=== PATIENT | male | born 1930 | race Caucasian/White ===

== ENCOUNTER 2016-06-29 20:35 | Inpatient (IN) | payer MEDICARE, OTHER ==
[~2016-06-29] VITALS: Ht 175.3 cm; Wt 65.0 kg
[2016-06-29] MEDS ORDERED: CEFTRIAXONE 1 GM VIAL ONE (22:58)
[2016-06-29] MEDS ORDERED: SODIUM CHLORIDE 0.9% 100 ML IV ONE (22:58)
[2016-06-30] VITALS (29 sets, daily range): BP systolic 99–163; RESP 0–20; TEMP 97.7–98.5; Ht 175.3 cm; Wt 65.0 kg
[2016-06-30] MEDS ORDERED: MAG HYDROX 30 ML UDC PO PRN (01:55)
[2016-06-30] MEDS ORDERED: BISACODYL 10 MG SUPP RECTAL PRN (01:55)
[2016-06-30] MEDS ORDERED: SALINE FLUSH 10 ML FLUSH PRN (01:55)
[2016-06-30] MEDS ORDERED: ONDANSETRON 4 MG VIAL IV PRN (01:55)
[2016-06-30] MEDS ORDERED: SODIUM CHLORIDE 0.9% 1,000 ML IV SCH (01:55)
[2016-06-30] MEDS ORDERED: BISACODYL EC 5 MG TAB PO PRN (01:55)
[2016-06-30] MEDS ORDERED: ALU/MAG/SIM 30 ML UDC PO PRN (01:55)
[2016-06-30] MEDS: SODIUM CHLORIDE 0.9% FLUSH BAG 500 ML IV SCH (05:40)
[2016-06-30] MEDS ORDERED: CEFTRIAXONE 1 GM in SODIUM CHLORIDE 0.9% 50 ML IV SCH (09:00)
[2016-06-30] MEDS ORDERED: POLYETHYLENE GLYCOL 17 GM PACKET PO PRN (09:05)
[2016-06-30] MEDS: SALINE FLUSH 10 ML FLUSH SCH ×2 (09:07→21:47)
[2016-06-30] MEDS: FLUTICASONE 0.05% NA BTL NARE EACH SCH ×2 (11:12→21:48)
[2016-06-30] MEDS: DABIGATRAN 150 MG CAP PO SCH ×2 (11:12→21:47)
[2016-06-30] MEDS: Furosemide 20 MG TAB PO SCH (11:12)
[2016-06-30] MEDS: MONTELUKAST 10 MG TAB PO SCH (11:13)
[2016-06-30] MEDS: PANTOPRAZOLE 40 MG TAB PO SCH (11:13)
[2016-06-30] MEDS: GABAPENTIN 100 MG CAP PO SCH ×2 (11:13→21:47)
[2016-06-30] MEDS: DUONEB INH SCH ×2 (15:05→22:47)
[2016-06-30] MEDS: NEB-BROVANA 15 MCG/2 ML INH SCH (19:27)
[2016-06-30] MEDS: NEB-BUDESONIDE 0.5 MG INH SCH (19:27)
[2016-06-30] MEDS ORDERED: KCL CR 10 MEQ TAB PO SCH (21:00)
[2016-06-30] MEDS ORDERED: TAMSULOSIN 0.4 MG CAP PO SCH (21:00)
[2016-06-30] MEDS ORDERED: PRAVASTATIN 40 MG TAB PO SCH (21:00)
[2016-06-30] MEDS: PHENYTOIN 100 MG CAP PO SCH (21:47)
[2016-07-01 04:06] VITALS: BP_SYST 104; RESP 20; TEMP 98.3
[2016-07-01] MEDS: SODIUM CHLORIDE 0.9% FLUSH BAG 500 ML IV SCH (05:50)
[2016-07-01] MEDS: PANTOPRAZOLE 40 MG TAB PO SCH (05:51)
[2016-07-01] MEDS: DUONEB INH SCH ×2 (06:58→14:38)
[2016-07-01] MEDS: NEB-BROVANA 15 MCG/2 ML INH SCH (06:58)
[2016-07-01] MEDS: NEB-BUDESONIDE 0.5 MG INH SCH (06:59)
[2016-07-01 07:22] VITALS: BP_SYST 154; RESP 16; TEMP 97.6
[2016-07-01] MEDS: DABIGATRAN 150 MG CAP PO SCH ×2 (08:31→09:23)
[2016-07-01] MEDS ORDERED: TELMISARTAN 40 MG TAB PO SCH (09:00)
[2016-07-01] MEDS: FLUTICASONE 0.05% NA BTL NARE EACH SCH (09:22)
[2016-07-01] MEDS: Furosemide 20 MG TAB PO SCH (09:24)
[2016-07-01] MEDS: PHENYTOIN 100 MG CAP PO SCH (09:24)
[2016-07-01] MEDS: GABAPENTIN 100 MG CAP PO SCH (09:25)
[2016-07-01] MEDS: MONTELUKAST 10 MG TAB PO SCH (09:26)
[2016-07-01] MEDS: SALINE FLUSH 10 ML FLUSH SCH (09:30)
[2016-07-01 11:56] VITALS: BP_SYST 122; RESP 16; TEMP 97.8
[2016-07-01 14:46] VITALS: BP_SYST 125; RESP 16; TEMP 97.8
== END 2016-07-01 15:40 | disposition home health service (06) | DRG 689 ==
LOC: ENRESERVTM → ENRESERVDT → ER 20:35 → ENPENDDIS 06-30 00:52 → EMR 06-30 00:52 → CCU 06-30 02:09 → 4NT 06-30 11:52
PROVIDERS: ADMIT Internal Medicine; ATTEND Internal Medicine
DX: N39.0 Urinary tract infection, site not specified (principal); G93.40 Encephalopathy, unspecified; T68.XXXA Hypothermia, initial encounter; I69.351 Hemiplegia and hemiparesis following cerebral infarction affecting right dominant side; G40.909 Epilepsy, unspecified, not intractable, without status epilepticus; I10 Essential (primary) hypertension; Z95.0 Presence of cardiac pacemaker; J45.909 Unspecified asthma, uncomplicated; Z79.01 Long term (current) use of anticoagulants; E16.2 Hypoglycemia, unspecified
CPT/HCPCS: 36600; 70450; 70551; 71010; 80047; 80048; 80053; 80185; 80307; 80320; 81001; 82140; 82553; 82803; 82947; 83605; 83735; 84100; 84439; 84443; 84484; 85014; 85025; 85610; 87040; 87088; 93005; 94640; 94799; 95819; 96365; 99223